=== PATIENT | female | born 1955 | race Caucasian/White ===

== ENCOUNTER → 2017-01-13 | Outpatient (CLI) | payer MEDICARE ==
[~2017-01-13] MED LIST: ADIPEX-P37.5 M1 PO; ANTIVERT PO; LEXAPRO PO; LORTAB 10-5001 EACH PO; MOBIC PO; NEXIUM PO; NORFLEX100 M1 PO; PHENERGAN PO; PHENTERMINE PO; PREDNISONE PO; PRILOSEC PO; ZYRTEC PO
--- NOTE | ~2017-01-13 | BD1 ---
[facility] A Service of [facility] RADIOLOGY TEXT RESULTS PATIENT: ERNESTINA JUSTIN LOCATION: SRA : 55 UNIT #: [id number] AGE: [address]: Jaylon Ramirez MD SEX: F ORDER DR: [id number] [address] [address] [id number] O MR#: [id number] Acc #: [id number] NAME: ERNESTINA JUSTIN : 1955 SEX: F STUDY DATE/TIME: 01/13/2017 9:57 UNIT: SRAD ROOM: STUDY DESCRIPTION: Dexa Bone Dens 1+ Site Attending Physician: Jaylon Ramirez M.D. Referring Physician: Jaylon Ramirez M.D. Ordering Physician: Jaylon Ramirez M.D. Primary Care Physician: Jaylon Ramirez M.D. MEDICAL IMAGING REPORT This report is preliminary unless electronic signature is present. EXAM DXA scan, 01/12/2017. HISTORY Status post menopause with no hormone replacement therapy. Osteopenia. Family history of osteoporosis in sister. FINDINGS Bone mineral density in the lumbar spine from L1 through L4 is 1.168 g/cm2, which is .1 standard deviation below the mean when compared to the young adult reference population, which is within the range of normal. This is 0.6 standard deviation above the mean when compared to the age-matched population. Bone mineral density in the left femoral neck is 0.798 g/cm2, which is 1.7 standard deviations below the mean when compared to the young adult reference population, which is characteristic of osteopenia. This is 0.8 standard deviation below the mean when compared to the age-matched population. Bone mineral density in the right femoral neck is 0.848 g/cm2, which is 1.4 standard deviations below the mean when compared to the young adult reference population, which is characteristic of osteopenia. This is 0.5 standard deviation below the mean when compared to the age-matched population. IMPRESSION Bone mineral density in the lumbar spine within the range of normal and within the hips bilaterally characteristic of osteopenia. [facility] A Service of [facility] RADIOLOGY TEXT RESULTS PATIENT: ERNESTINA JUSTIN LOCATION: [facility] : 55 UNIT #: [id number] AGE: [address]: Jaylon Ramirez MD SEX: F ORDER DR: Dictated by... Tanmay Justin M.D. THIS IS AN ELECTRONICALLY VERIFIED REPORT Tanmay Justin M.D. at 01/14/2017 8:04 AM [place] TD: 01/13/2017 12:40 JOB #: [id number] MEDICAL IMAGING REPORT Page 1 of 1
== END | disposition home or self-care (01) ==
LOC: SRAD 09:26
DX: M81.0 Age-related osteoporosis without current pathological fracture (principal); Z78.0 Asymptomatic menopausal state
CPT/HCPCS: 77080